=== PATIENT | female | born 1980 | race Caucasian/White ===

== ENCOUNTER 2016-08-26 11:02 | Emergency (ER) | payer BC, OTHER ==
--- NOTE | 2016-08-26 12:25 | RAD ---
CHEST TWO VIEWS: Comparison: 01-12-10 History: Cough. FINDINGS: Normal cardiac silhouette. The pulmonary vessels and hilum are normal. Costophrenic angles are papito ar. No mass. No consolidation. No pneumothorax or osseous abnormality. IMPRESSION: No acute cardiopulmonary process. POS: [facility]
--- NOTE | 2016-08-26 12:26 | RAD ---
LEFT RIBS THREE VIEWS: History: Fall. Left chest wall injury. FINDINGS: No displaced rib fracture or pneumothorax are apparent. POS: [facility]
[2016-08-26] MEDS ORDERED: Benzonatate 100 MG CAP ONE (12:32)
[2016-08-26] MEDS ORDERED: Oseltamivir 75 MG CAP ONE (12:32)
--- NOTE | 2016-08-26 13:04 | ERRECORD ---
[facility] EMERGENCY RECORD HPI COUGH (11:36 ABUS) CHIEF COMPLAINT: Patient presents for evaluation of cough, productive of white sputum. HISTORIAN: History provided by patient, 36 yr old F with no PMH comes in with worsening cough (productive) and runny nose, left ear pain, and exposure to son who has a positive dx of influenza A 2 strains. No vomiting. Also had a fall down stairs and landed on the left chest wall and left arm. Has normal feeling to the left arm and hand. LOCATION: Symptoms are localized, most severe to Left side. QUALITY: Denies choking sensation, Denies tightness, Denies wheezing, Pain is dull in nature, described as aching. SEVERITY: Currently symptoms are moderate. TIME COURSE: Gradual onset of symptoms, 2, days priror to arrival, Symptoms are worsening, are constant. ASSOCIATED WITH: Associated with chills, Associated with fever, Associated with upper respiratory infection. EXACERBATED BY: Patient's condition exacerbated by nothing. RELIEVED BY: Patient's condition relieved by nothing. IMMUNIZATION STATUS: Flu vaccine not up to date. ROS CONSTITUTIONAL: Historian denies chills, reports fever, reports malaise. (11:39 ABUS) CARDIOVASCULAR: Negative cardiovascular review of systems, Historian denies chest pain, denies palpitations. (11:39 ABUS) RESPIRATORY: Historian reports cough, denies cyanosis, denies shortness of breath, reports sputum. described as thin. (11:39 ABUS) GI: Negative gastrointestinal review of systems, Historian denies abdominal pain, denies constipation, denies diarrhea, denies nausea, denies vomiting. (11:39 ABUS) GENITOURINARY FEMALE: Negative genitourinary review of systems, Historian denies dysuria, denies frequency. (11:39 ABUS) MUSCULOSKELETAL: Historian reports arthralgias, reports fall, reports injury, reports myalgias. (11:40 ABUS) SKIN: Negative skin review of systems, Historian denies rash, denies skin changes. (11:39 ABUS) NEUROLOGIC: Negative neurologic review of systems, Historian denies headache. (11:39 ABUS) HEMO/LYMPHATIC: Normal hematologic/lymphatic system review, Historian denies abnormal blood clotting. (11:39 ABUS) PAST MEDICAL HISTORY (11:19 SFRE) MEDICAL HISTORY: Flu vaccine not up to date, Past medical history includes history of obesity, 400 LBS. FEMALE SURGICAL HISTORY: Surgical history of section, Surgical history of orthopedic surgery, &a-1R&a+25V*p+0X*r2432I*c202B*c15G*c2P*p-0X&a-25V&a+1R Name: Bravo Bronson : 1980 F36 MedRec: [id number] AcctNum: [id number] Prepared: ThuAug 26, 2016 13:43 by Interface Page 1 of 4 pMD [facility] EMERGENCY RECORD L KNEE. PSYCHIATRIC HISTORY: No previous psychiatric history. SOCIAL HISTORY: Patient drinks socially, rarely, Patient denies drug use, Patient currently uses tobacco, smokes cigarettes. KNOWN ALLERGIES No Known Drug Allergies CURRENT MEDICATIONS (11:17 SFRE) None VITAL SIGNS (11:15 SFRE) VITAL SIGNS: BP: 208/93, Pulse: 107, Resp: 20, Temp: 100.6 (Tympanic), Pain: 6 (Sharp), O2 sat: 97 on Room Air, Time: 08/26/2016 11:15. PHYSICAL EXAM CONSTITUTIONAL: Vital signs reviewed, Patient afebrile, Pulse normal, Blood pressure normal, Respiratory rate normal, Patient appears non toxic, Patient appears pain free, Patient alert and oriented to person, place and time. (11:39 ABUS) NECK: Neck exam normal, Neck exam included findings of normal range of motion, Trachea midline, no meningeal signs, no cervical adenopathy, no tenderness. (11:39 ABUS) RESPIRATORY CHEST: Respiratory and chest exam normal, Respiratory exam included findings of no respiratory distress, Breath sounds clear. (11:39 ABUS) CARDIOVASCULAR: Cardiovascular assessment normal, Cardiovascular exam included findings of heart rate regular rate and rhythm, Heart sounds normal. (11:39 ABUS) ABDOMEN FEMALE: Abdominal exam included findings of abdomen nontender, Bowel sounds normal, no distension, no mass, no pulsatile masses, no peritoneal signs, no rigidity, no guarding, no rebound, Rovsing's sign absent. (11:39 ABUS) BACK: Back exam normal, Back exam included findings of normal inspection, range of motion normal, no tenderness. (11:39 ABUS) UPPER EXTREMITY: Upper extremity exam included findings of inspection abnormal, contusions present, ecchymosis, Range of motion normal, Motor strength normal, Sensation intact, Brachial pulse normal, Radial pulse normal, no cyanosis, no clubbing, no edema. (11:40 ABUS) NEURO: Neuro exam normal, Neuro exam findings include patient oriented to person, place and time, Speech normal, Gait normal. (11:39 ABUS) SKIN: Skin exam normal, Skin exam included findings of skin warm, dry, and normal in color, no rash. (11:39 ABUS) RADIOLOGYINTERPRETATION (12:21 ABUS) CHEST: Chest films negative, no infiltrates, no pneumothorax, no &a-1R&a+25V*p+0X*s5952B*c202B*c15G*c2P*p-0X&a-25V&a+1R Name: Bravo Bronson : 1980 F36 MedRec: [id number] AcctNum: [id number] Prepared: Christopher Aug 26, 2016 13:43 by Interface Page 2 of 4 pMD [facility] EMERGENCY RECORD hemothorax, no masses, no cardiomegaly, no congestive heart failure, no effusion, no free air, Rib films negative, no fracture, no bony lesion, no pneumothorax. GLASSWARE SELECTOR: Preliminary review of x-rays by, ED Physician, Radiologist. MEDICATION ADMINISTRATION SUMMARY Drug Name: *Tamiflu, Dose Ordered: 75 mg, Route: Oral, Status: Given, Time: 12:40 08/26/2016, Drug Name: *Jyotisaljhonny Perles, Dose Ordered: 200 mg, Route: Oral, Status: Given, Time: 12:39 08/26/2016, *Additional information available in notes, Detailed record available in Medication Service section. DOCTOR NOTES (11:41 ABUS) TEXT: 36 yr old F with no PMH comes in with worsening cough (productive) and runny nose, left ear pain, and exposure to son who has a positive dx of influenza A 2 strains. DDX: Bronchitis, Viral URI, Flu, Sinusitis, Community Acquired Pneumonia, Allergies, Allergic Rhinitis. PLAN: Flu Test, Antitussives, Analgesics as needed DX: Influenza A Final Dispo: D/C Home with Tamiflu and T3 with regular follow up and return precautions. All results of testing and evaluation were shared with the patient who verbalized understanding and agreement with the plan of care. Level of Complexity / Medical Decision Making: Low Moderate. PROBLEM LIST No recorded problems DIAGNOSIS (12:55 ABUS) FINAL: PRIMARY: Flu. PRESCRIPTION (12:54 ABUS) acetaminophen-codeine: TABLET : 300 mg-30 mg : ORAL : Quantity: 1 Unit: tab(s) Route: ORAL Schedule: every 6 hours PRN Dispense: 10 Unit: tab(s) May substitute. Refills: No Refills . NOTES: No Refills. Tamiflu: CAPSULE : 75 mg : ORAL : Quantity: 1 Unit: cap(s) Route: ORAL Schedule: 2 times a day Dispense: 10 Unit: tab(s) May substitute. Refills: No Refills . NOTES: ^s=No Refills No Refills. DISPOSITION PATIENT: Disposition Type: Discharge, Disposition: *Discharge &a-1R&a+25V*p+0X*a4951R*c202B*c15G*c2P*p-0X&a-25V&a+1R Name: Bravo Bronson : 1980 F36 MedRec: [id number] AcctNum: [id number] Prepared: ThuAug 26, 2016 13:43 by Interface Page 3 of 4 pMD [facility] EMERGENCY RECORD Home, Condition: Good. (12:55 ABUS) Patient left the department. (13:40 SFRE) Capellan: ABUS=MD Celeste, Raffy SFRE=PATRICIA Johnson, Yanely &a-1R&a+25V*p+0X*[id number]*c202B*c15G*c2P*p-0X&a-25V&a+1R Name: Bravo Bronson : 1980 F36 MedRec: [id number] AcctNum: [id number] Prepared: ThuAug 26, 2016 13:43 by Interface Page 4 of 4 pMD [facility]
--- NOTE | 2016-08-26 13:07 | PICIS ---
[facility] EMERGENCY RECORD TRIAGE (ThuAug 26, 2016 11:17 SFRE) TRIAGE NOTES: FELL LAST THURSDAY C/O LEFT ARM AND LEFT RIB PAIN, ALSO THINKS SHE HAS URI. (ThuAug 26, 2016 11:17 SFRE) PATIENT: NAME: Bravo Bronson, AGE: 36, GENDER: female, : Thu1980, TIME OF GREET: ThuAug 26, 2016 11:04, PREFERRED LANGUAGE: Divehi, ECODE BILLING MAP: [facility], SSN: [id number], Zip Code: [address], KG WEIGHT: [phone], PHONE: , , , PERSON ID: [id number], PCP: NO PCP. (ThuAug 26, 2016 11:17 SFRE) COMPLAINT: FALL-RIB & LT ARM PAIN,FEVER. (ThuAug 26, 2016 11:17 SFRE) ADMISSION: URGENCY: 4 Non Urgent, ADMISSION SOURCE: Home, TRANSPORT: Walk-in, BED: ED -03. (ThuAug 26, 2016 11:17 SFRE) ASSESSMENT: Symptoms began 08/20/2016. (11:19 SFRE) IMMUNIZATIONS: Flu vaccine not up to date. (11:19 SFRE) SIRS SCORING: Heart Rate 55-109 (0), Temp range 96.8-101.1 (0), respiratory rate 12-24 (0), Mental Status altered: no (0). (11:19 SFRE) TRIAGE SCREENING: Patient denies suicidal ideation, Patient denies presence of domestic violence. (11:19 SFRE) LMP: Last menstrual period: 08/05/2016. (11:19 SFRE) PROVIDERS: TRIAGE NURSE: Yanely Johnson RN. (ThuAug 26, 2016 11:17 SFRE) VITAL SIGNS: BP 208/93, Pulse 107, Resp 20, Temp 100.6, (Tympanic), Pain 6, (Sharp), O2 Sat 97, on Room Air, Time 08/26/2016 11:15. (11:15 SFRE) KNOWN ALLERGIES No Known Drug Allergies CURRENT MEDICATIONS (11:17 SFRE) None VITAL SIGNS (11:15 SFRE) VITAL SIGNS: BP: 208/93, Pulse: 107, Resp: 20, Temp: 100.6 (Tympanic), Pain: 6 (Sharp), O2 sat: 97 on Room Air, Time: 08/26/2016 11:15. NURSING ASSESSMENT: ENT (11:17 SFRE) CONSTITUTIONAL: Patient arrives ambulatory, Gait steady, History obtained from patient, Patient appears, generally ill, Patient cooperative, Patient alert, Oriented to person, place and time, Skin warm, Skin dry, Skin normal in color, Mucous membranes pink, Mucous membranes moist, Patient is well-groomed, Patient complains of FALL AND FLU LIKE SYMPTOMS. PAIN: to the throat. ENT: Congestion, bilaterally, Mouth and throat assessment findings include mouth inspection normal, Uvula normal, Tonsils normal, Mucous membranes pink, and moist, Able to swallow, Speech normal, Associated with fever, Maximum &a-1R&a+25V*p+0X*r6059S*c202B*c15G*c2P*p-0X&a-25V&a+1R Name: Bravo Bronson : 1980 F36 MedRec: [id number] AcctNum: [id number] Prepared: ThuAug 26, 2016 13:49 by Interface Page 1 of 7 pMD [facility] EMERGENCY RECORD temperature (degree F) 100.6. RESPIRATORY/CHEST: Breath sounds clear, Respiratory assessment findings include respiratory effort easy, Respirations regular, Conversing normally, Neck and chest exam findings include trachea midline, Chest expansion equal, Chest movement symmetrical, Associated with cough, loose, productive of, yellow sputum, Associated with fever, Maximum temperature 100.6, tympanic. SAFETY: Side rails up, Cart/Stretcher in lowest position, Call light within reach, Hospital ID band on. NURSING ASSESSMENT: EXTREMITY UPPER (13:34 SFRE) CONSTITUTIONAL: Patient arrives ambulatory, Gait steady, History obtained from patient, Patient appears, in distress due to pain, Patient cooperative, Patient alert, Oriented to person, place and time, Skin warm, Skin dry, Skin normal in color, Mucous membranes pink, Mucous membranes moist, Patient is well-groomed, Patient complains of PAIN TO LEFT ARM. PAIN: sharp pain, REPORTS MID FOREARM TO MID UPPER ARM PAIN, Onset of pain 08/20/2016, constant, on a scale 0-10 patient rates pain as 6, Pain exacerbated by nothing, Nothing has been tried to alleviate the pain. LEFT UPPER EXTREMITY: Left upper extremity assessment findings include capillary refill less than 2 seconds, Skin color normal to hand, Skin temperature to hand warm, Distal sensation intact, Muscle tone normal, Inspection findings include no abrasions, Inspection findings include no deformity, Inspection findings include no ecchymosis, Inspection findings include no signs of trauma, Inspection findings include no swelling. SAFETY: Side rails up, Cart/Stretcher in lowest position, Call light within reach, Hospital ID band on. NURSING PROCEDURE: NURSE NOTES (11:32 SFRE) NURSES NOTES: Patient in no apparent distress, Patient examined by physician. NURSING PROCEDURE: TRANSPORT TO TESTS (12:08 SFRE) FOLLOW-UP: After procedure, patient returned to emergency department. ORDER DETAILS Order Name: Influenza A&B Ag Screen, Status: Active, Time: 11:35 08/26/2016, User: KATY, - Ordered for: MD Alonso Anthony, - Entered by: MD Alonso Anthony - Tue Aug 26, 2016 11:35, - Quantity: 1, Order Name: XR Chest Pa & Lat STANDARD, Status: Active, Time: 11:36 08/26/2016, User: ABUS, - Ordered for: MD Alonso Anthony, &a-1R&a+25V*p+0X*q8389Z*c202B*c15G*c2P*p-0X&a-25V&a+1R Name: Bravo Bronson : 1980 F36 MedRec: [id number] AcctNum: [id number] Prepared: Christopher Aug 26, 2016 13:49 by Interface Page 2 of 7 pMD [facility] EMERGENCY RECORD - Entered by: MD Alonso Anthony - Tue Aug 26, 2016 11:36, - Quantity: 1, Order Name: XR Ribs Lt>=2 View STANDARD, Status: Active, Time: 11:36 08/26/2016, User: ABUS, - Ordered for: MD Alonso Anthony, - Entered by: MD Alonso Anthony - Tue Aug 26, 2016 11:36, - Quantity: 1. MEDICATION ADMINISTRATION SUMMARY Drug Name: *Tamiflu, Dose Ordered: 75 mg, Route: Oral, Status: Given, Time: 12:40 08/26/2016, Drug Name: *Jyotisaljhonny Perles, Dose Ordered: 200 mg, Route: Oral, Status: Given, Time: 12:39 08/26/2016, *Additional information available in notes, Detailed record available in Medication Service section. MEDICATION SERVICE Tamiflu: Order: Tamiflu (oseltamivir phosphate) - Dose: 75 mg : Oral Schedule: Now Notes: Verbal Order Ordered by: Raffy Alonso MD Entered by: Yanely Johnson RN [facility] Aug 26, 2016 12:35 Documented as given by: Yanely Johnson RN [facility] Aug 26, 2016 12:40 Patient, Medication, Dose, Route and Time verified prior to administration. Verbal order read back and verified, Amount given: 75MG, Site: Medication administered P.O., Correct patient, time, route, dose and medication confirmed prior to administration, Patient advised of actions and side-effects prior to administration, Allergies confirmed and medications reviewed prior to administration, Patient in position of comfort, Side rails up, Cart in lowest position, Family at bedside, Co-signed by: Raffy Alonso MD [facility] Aug 26, 2016 12:52. Tessalon Perles: Order: Tessalon Perles (benzonatate) - Dose: 200 mg : Oral Schedule: Now Notes: Verbal Order Ordered by: Raffy Alonso MD Entered by: Yanely Johnson RN [facility] Aug 26, 2016 12:36 Documented as given by: Yanely Johnson RN [facility] Aug 26, 2016 12:39 Patient, Medication, Dose, Route and Time verified prior to administration. Verbal order read back and verified, Amount given: 200MG, Site: Medication administered P.O., Patient appears Awake and alert- acceptable, Correct patient, time, route, dose and medication confirmed prior to administration, Patient advised of actions and side-effects prior to administration, Allergies confirmed and medications reviewed prior to administration, Patient in position of &a-1R&a+25V*p+0X*b7026P*c202B*c15G*c2P*p-0X&a-25V&a+1R Name: Bravo Bronson : 1980 F36 MedRec: [id number] AcctNum: [id number] Prepared: Christopher Aug 26, 2016 13:49 by Interface Page 3 of 7 pMD [facility] EMERGENCY RECORD comfort, Side rails up, Cart in lowest position, Family at bedside, Co-signed by: MD Christopher Reagan Aug 26, 2016 12:52. HPI COUGH (11:36 ABUS) CHIEF COMPLAINT: Patient presents for evaluation of cough, productive of white sputum. HISTORIAN: History provided by patient, 36 yr old F with no PMH comes in with worsening cough (productive) and runny nose, left ear pain, and exposure to son who has a positive dx of influenza A 2 strains. No vomiting. Also had a fall down stairs and landed on the left chest wall and left arm. Has normal feeling to the left arm and hand. LOCATION: Symptoms are localized, most severe to Left side. QUALITY: Denies choking sensation, Denies tightness, Denies wheezing, Pain is dull in nature, described as aching. SEVERITY: Currently symptoms are moderate. TIME COURSE: Gradual onset of symptoms, 2, days priror to arrival, Symptoms are worsening, are constant. ASSOCIATED WITH: Associated with chills, Associated with fever, Associated with upper respiratory infection. EXACERBATED BY: Patient's condition exacerbated by nothing. RELIEVED BY: Patient's condition relieved by nothing. IMMUNIZATION STATUS: Flu vaccine not up to date. ROS CONSTITUTIONAL: Historian denies chills, reports fever, reports malaise. (11:39 ABUS) CARDIOVASCULAR: Negative cardiovascular review of systems, Historian denies chest pain, denies palpitations. (11:39 ABUS) RESPIRATORY: Historian reports cough, denies cyanosis, denies shortness of breath, reports sputum. described as thin. (11:39 ABUS) GI: Negative gastrointestinal review of systems, Historian denies abdominal pain, denies constipation, denies diarrhea, denies nausea, denies vomiting. (11:39 ABUS) GENITOURINARY FEMALE: Negative genitourinary review of systems, Historian denies dysuria, denies frequency. (11:39 ABUS) MUSCULOSKELETAL: Historian reports arthralgias, reports fall, reports injury, reports myalgias. (11:40 ABUS) SKIN: Negative skin review of systems, Historian denies rash, denies skin changes. (11:39 ABUS) NEUROLOGIC: Negative neurologic review of systems, Historian denies headache. (11:39 ABUS) HEMO/LYMPHATIC: Normal hematologic/lymphatic system review, Historian denies abnormal blood clotting. (11:39 ABUS) PAST MEDICAL HISTORY (11:19 SFRE) MEDICAL HISTORY: Flu vaccine not up to date, Past &a-1R&a+25V*p+0X*l0831T*c202B*c15G*c2P*p-0X&a-25V&a+1R Name: Bravo Bronson : 1980 F36 MedRec: [id number] AcctNum: [id number] Prepared: Christopher Aug 26, 2016 13:49 by Interface Page 4 of 7 pMD [facility] EMERGENCY RECORD medical history includes history of obesity, 400 LBS. FEMALE SURGICAL HISTORY: Surgical history of section, Surgical history of orthopedic surgery, L KNEE. PSYCHIATRIC HISTORY: No previous psychiatric history. SOCIAL HISTORY: Patient drinks socially, rarely, Patient denies drug use, Patient currently uses tobacco, smokes cigarettes. PHYSICAL EXAM CONSTITUTIONAL: Vital signs reviewed, Patient afebrile, Pulse normal, Blood pressure normal, Respiratory rate normal, Patient appears non toxic, Patient appears pain free, Patient alert and oriented to person, place and time. (11:39 ABUS) NECK: Neck exam normal, Neck exam included findings of normal range of motion, Trachea midline, no meningeal signs, no cervical adenopathy, no tenderness. (11:39 ABUS) RESPIRATORY CHEST: Respiratory and chest exam normal, Respiratory exam included findings of no respiratory distress, Breath sounds clear. (11:39 ABUS) CARDIOVASCULAR: Cardiovascular assessment normal, Cardiovascular exam included findings of heart rate regular rate and rhythm, Heart sounds normal. (11:39 ABUS) ABDOMEN FEMALE: Abdominal exam included findings of abdomen nontender, Bowel sounds normal, no distension, no mass, no pulsatile masses, no peritoneal signs, no rigidity, no guarding, no rebound, Rovsing's sign absent. (11:39 ABUS) BACK: Back exam normal, Back exam included findings of normal inspection, range of motion normal, no tenderness. (11:39 ABUS) UPPER EXTREMITY: Upper extremity exam included findings of inspection abnormal, contusions present, ecchymosis, Range of motion normal, Motor strength normal, Sensation intact, Brachial pulse normal, Radial pulse normal, no cyanosis, no clubbing, no edema. (11:40 ABUS) NEURO: Neuro exam normal, Neuro exam findings include patient oriented to person, place and time, Speech normal, Gait normal. (11:39 ABUS) SKIN: Skin exam normal, Skin exam included findings of skin warm, dry, and normal in color, no rash. (11:39 ABUS) EVENTS TRANSFER: Triage to Emergency Main ED -03. (ThuAug 26, 2016 11:17 SFRE) Emergency Main ED -03 to Holding. (13:34 MDEB) Removed from Emergency Holding. (13:40 SFRE) RADIOLOGYINTERPRETATION (12:21 ABUS) CHEST: Chest films negative, no infiltrates, no pneumothorax, no hemothorax, no masses, no cardiomegaly, no congestive heart failure, no effusion, no free air, Rib films negative, no fracture, no bony &a-1R&a+25V*p+0X*u1749O*c202B*c15G*c2P*p-0X&a-25V&a+1R Name: Bravo Bronson : 1980 F36 MedRec: [id number] AcctNum: [id number] Prepared: ThuAug 26, 2016 13:49 by Interface Page 5 of 7 pMD [facility] EMERGENCY RECORD lesion, no pneumothorax. VENEER DRIER: Preliminary review of x-rays by, ED Physician, Radiologist. DOCTOR NOTES (11:41 ABUS) TEXT: 36 yr old F with no PMH comes in with worsening cough (productive) and runny nose, left ear pain, and exposure to son who has a positive dx of influenza A 2 strains. DDX: Bronchitis, Viral URI, Flu, Sinusitis, Community Acquired Pneumonia, Allergies, Allergic Rhinitis. PLAN: Flu Test, Antitussives, Analgesics as needed DX: Influenza A Final Dispo: D/C Home with Tamiflu and T3 with regular follow up and return precautions. All results of testing and evaluation were shared with the patient who verbalized understanding and agreement with the plan of care. Level of Complexity / Medical Decision Making: Low Moderate. PROBLEM LIST No recorded problems DIAGNOSIS (12:55 ABUS) FINAL: PRIMARY: Flu. DISPOSITION PATIENT: Disposition Type: Discharge, Disposition: *Discharge Home, Condition: Good. (12:55 ABUS) Patient left the department. (13:40 SFRE) INSTRUCTION (12:55 ABUS) DISCHARGE: INFLUENZA (ADULT). FOLLOWUP: [facility], /[facility], [address], [place] [facility] [address], , Follow up with Primary Care Physician in 2-3 days. SPECIAL: As discussed in the ER before you left, please follow up with your primary care doctor or call the referral made for you here in the ED today to establish outpatient follow up for your medical care. Please come back sooner if you start to develop fever, worsening pain, swelling, or symptoms that are new or symptoms the concern you. PRESCRIPTION (12:54 ABUS) acetaminophen-codeine: TABLET : 300 mg-30 mg : ORAL : Quantity: 1 Unit: tab(s) Route: ORAL Schedule: every 6 hours PRN Dispense: 10 Unit: tab(s) May substitute. Refills: No Refills . NOTES: No Refills. Tamiflu: CAPSULE : 75 mg : ORAL : Quantity: 1 Unit: cap(s) Route: ORAL Schedule: 2 times a day Dispense: 10 Unit: tab(s) &a-1R&a+25V*p+0X*b0796D*c202B*c15G*c2P*p-0X&a-25V&a+1R Name: Bravo Bronson : 1980 F36 MedRec: [id number] AcctNum: [id number] Prepared: ThuAug 26, 2016 13:49 by Interface Page 6 of 7 pMD [facility] EMERGENCY RECORD May substitute. Refills: No Refills . NOTES: ^s=No Refills No Refills. IMAGING (13:38 SFRE) *DISCHARGE INSTRUCTIONS RECEIPT: Image captured from scanner. *SUPPLY CHARGE SHEET: Image captured from scanner. ADMIN (12:56 ABUS) DIGITAL SIGNATURE: MD Alonso Anthony. RESULTS (12:29 ABUS) RADIOLOGY: XR Ribs Lt>=2 View STANDARD Observe DT: ThuAug 26, 2016 11:37, RIBS2L LEFT RIBS THREE VIEWS: History: Fall. Left chest wall injury. FINDINGS: No displaced rib fracture or pneumothorax are apparent. POS: [facility] . Capellan: KATY=MD Celeste, Raffy POST=PATRICIA Velez, Anita SEAYE=PATRICIA Johnson, Yanely &a-1R&a+25V*p+0X*g7149T*c202B*c15G*c2P*p-0X&a-25V&a+1R Name: Bravo Bronson : 1980 F36 MedRec: [id number] AcctNum: [id number] Prepared: Christopher Aug 26, 2016 13:49 by Interface Page 7 of 7 pMD [facility]
== END 2016-08-26 13:04 | disposition home or self-care (01) ==
LOC: MADERS 11:02
DX: J11.1 Influenza due to unidentified influenza virus with other respiratory manifestations (principal); F17.210 Nicotine dependence, cigarettes, uncomplicated
CPT/HCPCS: 71020; 99284

== ENCOUNTER 2020-05-05 15:08 | Emergency (ER) | payer OTHER ==
[2020-05-05] MEDS ORDERED: Sodium Chloride 0.9% 1,000 ML ONE (15:30)
[2020-05-05 16:14] LABS: #Basophils 0.1 thou/uL (0.0-0.2); #Eosinphils 0.1 thou/uL (0.0-0.7); #Lymphocytes 1.4 thou/uL (1.20-3.40); #Monocytes 0.3 thou/uL (0.11-0.59); #Neutrophils 4.8 thou/uL (1.40-6.50); %Basophils 1.1 % (0.0-1.0); %Eosinophils 1.6 % (0.0-10.0); %Lymphocytes 21.1 % (21.0-51.0); %Neutrophils 72.2 % (42.0-75.0); Hemoglobin 11.8 g/dL (12.0-16.0); Mean Corpuscular HGB CONC 31.6 g/dL (32.0-36.0); Mean Corpuscular Hemoglobin 26.7 pg (27.0-31.0); Mean Corpuscular Volume 84.5 fL (78.0-98.0); Mean Platelet Volume 6.8 fL (7.4-10.4); Platelet Count 306 thou/uL (130-400); RBC Distribution Width 14.1 % (11.5-14.5); Red Blood Cell (RBC) Count 4.41 mill/uL (4.20-5.40); White Blood Cell (WBC) Count 6.6 thou/uL (4.8-10.8)
[2020-05-05 16:32] LABS: Anion Gap 22 mmol/L (10-20); BUN (Urea Nitrogen) 20 mg/dL (7.0-18.7); Bilirubin, Total 0.4 mg/dL (0.2-1.2); Calc. Creatinine Clearance 0 mL/min (70-130); Calcium 8.4 mg/dL (7.8-10.44); Carbon Dioxide 18 mmol/L (22-29); Chloride 100 mmol/L (98-107); Estimated GFR-MDRD 64; Globulin 3.6 g/dL (2.4-3.5); Glucose 195 mg/dL (70-105); Potassium 4.1 mmol/L (3.5-5.1); Protein, Total 7.6 g/dL (6.0-8.3); Sodium 136 mmol/L (136-145)
[2020-05-05 16:33] LABS: ALT (SGPT) 40 U/L (8-55); AST (SGOT) 55 U/L (5-34); Alkaline Phosphatase 87 U/L (40-110); Lipase 28 U/L (8-78)
[2020-05-05] MEDS ORDERED: Ondansetron PF 4 MG/2 ML Vial ONE (16:50)
[2020-05-05 17:21] LABS: Bilirubin Small (Negative); Blood, Urine Negative (Negative); Glucose, Urine (Dipstick) Negative (Negative); Ketone, Urine Negative (Negative); Leukocyte Negative (Negative); Nitrite Negative (Negative); Protein, Urine (Dipstick) 30 mg/dL (Neg-Trace); Urobilinogen 0.2 mg/dL (Less than 2); pH, Urine 5.5 (5.0-9.0)
[2020-05-05 17:23] LABS: Clarity Hazy (Clear)
[2020-05-05 17:24] LABS: Specific Gravity, Urine 1.033 (1.002-1.036)
[2020-05-05 17:26] LABS: RBC/HPF 0-3 HPF (0-3); WBC/HPF 0-3 HPF (0-3)
[2020-05-05 17:27] LABS: Bacteria/HPF 1+ HPF (None Seen)
--- NOTE | 2020-05-05 18:20 | RAD ---
AP CHEST: 05/05/20 HISTORY: Nausea and vomiting. Shortness of breath. No comparison. Lungs are clear. No infiltrate identified. Heart and mediastinum unremarkable. IMPRESSION: No acute process identified on portable exam. POS: [facility]
== END 2020-05-05 17:48 | disposition home or self-care (01) ==
LOC: MADERS 15:08
DX: A08.4 Viral intestinal infection, unspecified (principal); E11.9 Type 2 diabetes mellitus without complications; E78.5 Hyperlipidemia, unspecified; E78.00 Pure hypercholesterolemia, unspecified; E66.9 Obesity, unspecified; K21.9 Gastro-esophageal reflux disease without esophagitis; I10 Essential (primary) hypertension; F17.210 Nicotine dependence, cigarettes, uncomplicated; Z79.84 Long term (current) use of oral hypoglycemic drugs; Z79.899 Other long term (current) drug therapy
CPT/HCPCS: 71045; 80053; 81003; 81015; 83605; 83690; 84484; 85025; 87040; 94760; 96361; 96374; J2405; J7050

== ENCOUNTER 2023-06-07 17:56 | Emergency (ER) | payer BC ==
[2023-06-07] MEDS ORDERED: cefTRIAXone (ROCEPHIN) 1 GM VIAL ONE (18:16)
[2023-06-07] MEDS ORDERED: Lidocaine 1% (PF) 30 ML VIAL ONE (18:16)
== END 2023-06-07 18:50 | disposition home or self-care (01) ==
LOC: MADERS 17:56
DX: L03.114 Cellulitis of left upper limb (principal); K21.9 Gastro-esophageal reflux disease without esophagitis; I10 Essential (primary) hypertension; E11.9 Type 2 diabetes mellitus without complications; F17.210 Nicotine dependence, cigarettes, uncomplicated; Z79.899 Other long term (current) drug therapy
CPT/HCPCS: 96372; 99283; J0696; J2001